=== PATIENT | female | born 1970 | race Caucasian/White ===

== ENCOUNTER 2025-07-05 10:45 | Outpatient (CLI) | payer OTHER, SELFPAY ==
--- NOTE | 2025-07-05 11:15 | CRLHL7_ITS ---
For Patients: As a result of the Century Cures Act, medical imaging exams and procedure reports are released immediately into your electronic medical record. You may view this report before your referring provider. If you have questions, please contact your health care provider. ULTRASOUND-GUIDED CYST ASPIRATION X2 CLINICAL HISTORY: Symptomatic cyst LEFT breast. COMPARISON STUDIES: [facility] 06/25/2025. TECHNIQUE: Real-time ultrasound with image documentation was used for targeting the breast lesion. Ultrasound-guided aspiration obtained of each cysts using an 18-gauge needle. CONSENT and TIME OUT: The procedure, risks, and alternatives were explained to the patient and a consent was signed. [place] Protocol was followed including pre-procedure verification that relevant information/documentation was available, reviewed and properly matched to the patient; consent accurate and complete; and equipment and supplies available. Time Out was conducted just prior to starting procedure to verify the four required elements: patient identity, correct side/site marked (if applicable), procedure, relevant images/results properly labeled and displayed (if applicable). PROCEDURE: The patient was positioned supine on the ultrasound table. The breast was prepped with ChloraPrep. Regarding each cyst, 5 cc of 1 percent lidocaine used for local anesthesia. LATERALITY: LEFT breast. LESION: Cyst with internal mobile debris noted at 2 o`clock 2 cm from the nipple measuring 1.7 x 2.4 x 2.5 cm. Smaller anechoic circumscribed cyst LEFT breast 2 o`clock 1 cm from the nipple measures 1.6 x 0.8 x 1.5 cm. 6 cc of fluid aspirated from the larger cyst and 1 cc of fluid aspirated from the smaller cyst. Both cysts disappeared following the aspiration. IMPRESSION: Ultrasound-guided cyst aspiration x2. ACR not applicable Dictated by Triston Kirkland MD @ 07/05/2025 12:01:47 PM jj/Dictated by: Triston Kirkland MD @ 07/05/2025 12:01:00 PM (Electronically Signed)
== END 2025-07-05 10:46 | disposition home or self-care (01) ==
LOC: US 10:50
PROVIDERS: PCP Physician Assistant; Visit Provider Physician Assistant
DX: N60.02 Solitary cyst of left breast (principal)
CPT/HCPCS: 19000; 76942